=== PATIENT | male | born 2000 | race Caucasian/White ===

== ENCOUNTER 2020-07-22 23:45 | Emergency (ER) | payer OTHER ==
[~2020-07-22] VITALS: Ht 193 cm; Wt 136.4 kg
[2020-07-23 00:04] VITALS: Ht 193 cm; Wt 136.4 kg
[2020-07-23 00:28] VITALS: BP 162/102
== END 2020-07-23 02:41 | disposition left against medical advice (07) ==
LOC: D.ER 23:45
DX: Z71.1 Person with feared health complaint in whom no diagnosis is made (principal)